=== PATIENT | female | born 1980 | race Hispanic/Latino ===

== ENCOUNTER 2024-10-16 11:15 | Emergency (ER) | payer SELFPAY ==
[2024-10-16] VITALS (7 sets, daily range): BP systolic 122–196; BP diastolic 63–123; BMI 29.6
[2024-10-16 12:21] LABS: % Basophils 0.5 % (0-2); % Eosinophils 0.8 % (0-6); % Immature Granulocytes 0.3 % (0-0.5); % Lymphocytes 22.3 % (20.5-51.1); % Monocytes 6.2 % (1.7-9.3); % Neutrophils 69.9 % (42.2-75.2); Absolute Eosinophils 0.1 10^3/uL (0-0.7); Absolute Lymphocytes 1.4 10^3/uL (1.2-3.4); Absolute Monocytes 0.4 10^3/uL (0.1-0.6); Absolute Neutrophils 4.3 10^3/uL (1.4-6.5); Hematocrit 37.4 % (37.0-47.0); Hemoglobin 13.2 g/dL (12.0-16.0); Mean Corp Hgb Conc. 35.3 g/dL (33.0-37.0); Mean Corpuscular Hgb 29.3 pg (27.0-31.0); Mean Corpuscular Volume 83.1 fL (81.0-99.0); Mean Platelet Volume 9.2 fL (7.4-10.4); Nucleated Red Blood Cells % 0 %; Platelet Count 330 10^3/uL (130-400); Red Cell Dist. Width 13.1 % (11.5-14.5); White Blood Cell Count 6.1 10^3/uL (4.8-10.8)
--- NOTE | 2024-10-16 12:34 | ED.GENMED ---
History of Present Illness
General
Chief Complaint: Chest Pain
Source: patient and other (Patient's son who is at the bedside as well as a yeast supervisor for [place])
Exam Limitations: none
Time Seen by Provider: 10/16/24 12:32
Nursing documentation reviewed up to this point in time: agreed with
History of Present Illness
History of Present Illness:
The patient is a 44-year-old female with a past medical history of high blood pressure and insulin-dependent diabetes. Patient arrives with multiple complaints. Patient reports several weeks of intermittent chest pain across her entire chest and
shortness of breath. The chest pain is not worse when she takes a deep breath, nor is it sharp. She describes it as a tightness or pressure. Additionally, patient describes a mild to moderate headache and numbness throughout her whole body.
Patient reports that the numbness seems worse on the left side of her body than on the right side. She denies any difficulty swallowing or speaking. She denies dizziness. Additionally patient reports cough and diffuse lower back pain. She denies
sore throat and rash. She denies vision changes. She denies nausea, vomiting and diarrhea. Patient reports that she has been off of her insulin for 1 year because her [place] but her mother is no longer able to afford
her insulin. Additionally, the patient reports that she takes medication for her blood pressure but is unsure what it is called and states that her mom has not been able to afford her blood pressure medication for about 2 months. Patient was able
to show me a picture of the blood pressure medication and it appears as though it might be clonidine. Overall, patient reports the symptoms have been occurring all intermittently and occur about 3 times per week for several weeks to months.
Past History
Past History
ED Past Medical History: HTN and IDDM
ED Past Surgical History: Gynecological
Social History
Tobacco: Non-smoker
Drug: None
Personal: Other
Living: with family
Employment: Other
Family History
Family History: Other
Review of Systems
Review of Systems
Allergies reviewed?: Yes
All Other Systems: ROS reviewed and negative except as documented in HPI and ROS
Constitutional: Reports fatigue
EENT: Reports no symptoms
Respiratory: Reports cough and trouble breathing
Cardiac: Reports chest pain
ABD/GI: Reports no symptoms
: Reports no symptoms
Musculoskeletal: Reports back pain
Skin: Reports no symptoms
Neurological: Reports headache and numbness
Endocrine: Reports no symptoms
Hematologic/Lymphatic: Reports no symptoms
Psychiatric: Reports no symptoms
Phy Exam
Physical Exam
Physical Exam:
Physical Exam
General: no apparent distress, not acutely ill. Well and comfortable appearing
Neck: supple. no meningeal signs. normal psoterior pharynx
Heart: s1/s2 regular rate and rhythm, no murmur. equal radial pulses.
Lungs: no acute respiratory distress. clear bilaterally. Breathing completely comfortably
Abdomen: normal bowel sounds. not tender. no CVAT
Neuro: alert and oriented. no focal neurological deficits. Cranial nerves equal and symmetric bilaterally. Extraocular muscles intact. PERRL, 5 out of 5 strength in all extremities without drift. Normal [id number].
Patient reports diminished sensation of left face, left arm and left leg but could still identify which side I am touching
Skin: no rash
Psychiatric: well kept. interactive and cooperative
Extremities: no edema. no calf tenderness. negative homans. good distal pulses
Scores
Heart Score for Chest Pain Patients
STEMI patient?: Not applicable
Course
Orders/Labs/Results
Orders:
Orders
10/16/24 11:31
ECG [Electrocardiogram (*1)] Urgent
Reason for Study: Chest Pain
EKG- Treatment ONCE
10/16/24 12:12
Test Result ONCE
10/16/24 12:13
CMP [Comprehensive Metabolic Panel] Urgent
Complete Blood Count/With Diff Urgent
HCG, Serum Qualitative Screen Urgent
Lipase Urgent
NT-proBNP Urgent
Troponin I Urgent
10/16/24 12:33
Add On- LAB Urgent
Tests Added?: pro-BNP
10/16/24 13:06
Acetaminophen [Tylenol] 1,000 mg PO NOW STA
10/16/24 13:07
CT Head W/o Iv Contrast Urgent
Comment:
Reason For Exam: L sided body numbness, HTN
Clonidine [Catapres] 0.2 mg PO NOW STA
10/16/24 14:09
CR Chest - 2 Views Urgent
Comment:
Reason For Exam: SOB, cough
10/16/24 15:59
Case Management Consult ONCE
Case Management Consult: Discharge Planning
Requested By:: PHYSICIAN
Comment: Support with paying for clonidine
10/16/24 16:35
Urinalysis Reflex To Culture Urgent
Date Specimen was Collected: 10/16/24
Time Specimen was Collected: 16:34
Urine Microscopic Reflex Cult Urgent
Abnormal Lab Results
10/16/24 10/16/24
12:13 16:35
Chloride 109 H mmol/L
(98-107)
Creatinine 0.4 L mg/dL
(0.6-1.0)
Ur Occult Blood Reflex 1+ A
(Negative)
Urine RBC 3-6 A /HPF
(0-2)
Urine Bacteria (Reflex) Few A
(Negative)
10/16/24 12:13
10/16/24 12:13
Vital Signs
Initial and Last Documented VS:
Initial Vital Signs
Temp Pulse Resp BP Pulse Ox
98.3 F 77 16 187/123 100
10/16/24 11:19 10/16/24 11:19 10/16/24 11:19 10/16/24 11:19 10/16/24 11:19
Last Documented Vital Signs
Temp Pulse Resp BP Pulse Ox
98.2 F 77 18 128/63 100
10/16/24 11:26 10/16/24 17:17 10/16/24 17:17 10/16/24 17:17 10/16/24 17:17
MDM/Problems Addressed
Differential Diagnosis Includes:
Hypertensive urgency, hypertensive emergency, CVA, acute hyperglycemia
MDM/Problems Addressed:
Patient complains of multiple symptoms including diffuse numbness, worse on the left than the right, as well as headache and chest pain
Chronic conditions affecting care: HTN
Acute Exacerbation and/or Progression of Chronic Illness:
Patient is acutely hypertensive, likely due to poorly controlled hypertension
*Radiology
Radiology exam reviewed: preliminary read by ED provider (Chest x-ray read by me. No acute disease) and radiology read reviewed
*Pulse Oximetry
Patient hypoxic: no
*EKG
Interpreted by ED Provider?: Yes
Interpretation: abnormal
Comparison EKG: no comparison EKG present
Rate: normal
Rhythm: sinus
Friona: normal axis
Interval: normal interval
QRS Pattern: normal QRS
Ischemia: non-specific ST changes
*[employer] Interpretation
Rate: normal
Interpretation: normal
Rhythm: sinus
*Critical Care Note
Total Time (30-74mins, 75-104mins- exclusive of procedures): Not Applicable
Data Reviewed
Source: patient and family
Patient Management
Social determinants of health affecting care: Living situation and Strong social support (Son is at the bedside. He is able to speak [place] fairly well.)
Discussion with other providers: Other (Case discussed with neurologist on-call who felt that patient can safely go home given that her symptoms are gone and her blood pressure has improved with outpatient follow-up, blood pressure control, and
aspirin 81 mg daily)
Escalation/DeEscalation of care consider admission/obs:
4:45 pm Patient looks extremely well and comfortable. She reports her chest pain is gone, her headache is much better and her numbness is gone completely. Her blood pressure is greatly improved with clonidine. I had case management come by and
recommend that patient fill prescription at [facility] because it will cost about $10 per month.
We used a yeast supervisor multiple times with the patient understood the importance of starting the clonidine 0.2 mg daily, starting aspirin, as well as calling and [facility] clinic to follow-up
ED Attending Note
-
Portions of this chart may have been created with voice recognition software.� Occasional wrong word or��sound alike� substitutions may have occurred due to the inherent limitations of voice recognition software.
Discharge Plan
Departure
Patient Disposition: Home (Routine Discharge)
Date of Disposition: 10/16/24
Time of Disposition: 17:00
Patient with high blood pressure during this ER visit?: Yes
Condition: Good
Covid-19: Not Applicable
Discharge Problem:
HBP (high blood pressure)
Instructions: High blood pressure - ED discharge instructions
Prescriptions:
New
clonidine HCl 0.2 mg tablet
0.2 mg PO DAILY Qty: 30 0RF
Referrals:
[facility] [Outside]
NONE,* [Family Provider] -
Activity Restrictions/Additional Instructions:
llame a la clin[facility] para programar holli karolina para que le controlen la preson arterial y el azucar en paul. El irina de telefono es [phone].
Te recomendamos que tambien tomos 81 mg de Aspirina que se vende en [facility] ([facility])
Interventions
Interventions:
*Risk Screen - Suicide Last Done: 10/16/24 11:26
*General Assessment Last Done: 10/16/24 13:08
*Neglect/Abuse Screening Last Done: 10/16/24 12:00
*ED- Fall Risk Assessment Last Done: 10/16/24 12:00
*ED COVID-19 Vaccine History Last Done: 10/16/24 11:53
*Nursing Disposition Last Done: 10/16/24 17:18
ED- Cardiac Assessment Last Done: 10/16/24 11:56
Discharge Date and Time
Discharge Date/Time: 10/16/24 17:19
Print Language: INDONESIAN
[2024-10-16 12:37] LABS: ALT (SGPT) 31 U/L (0-35); AST (SGOT) 22 U/L (14-36); Albumin 4.4 g/dl (3.5-5.0); Alkaline Phosphatase 75 U/L (38-126); Blood Urea Nitrogen 10 mg/dl (7-17); Calcium 8.9 mg/dl (8.4-10.2); Carbon Dioxide 26 mmol/L (22-30); Chloride 109 mmol/L (98-107); Estimated Creatinine Clearance 112 ml/min; Glucose 98 mg/dl (70-99); HCG, Serum Qualitative Screen Negative; Potassium 3.5 mmol/L (3.5-5.1); Sodium 142 mmol/L (135-145); Total Bilirubin 0.5 mg/dl (0.2-1.3); Total Protein 6.7 g/dl (6.3-8.2); eGFR > 60.00
[2024-10-16 12:48] LABS: Troponin I < 0.012 ng/ml
[2024-10-16 13:08] LABS: Lipase 63 U/L (23-300)
[2024-10-16] MEDS: TYLENOL 1000 MG PO (13:13)
[2024-10-16] MEDS: CATAPRES 0.2 MG PO (13:13)
[2024-10-16 13:22] LABS: NT-proBNP 364 pg/ml
[2024-10-16 16:48] LABS: Urine Albumin Negative (Neg - Trace); Urine Bilirubin Negative (Negative); Urine Character Clear (Clear); Urine Color Yellow; Urine Glucose Negative (Negative); Urine Ketone Negative (Negative); Urine Leukocyte Negative (Negative); Urine Nitrite Negative (Negative); Urine Occult Blood 1+ (Negative); Urine Urobilinogen Negative (Neg - 1+); Urine pH 6.5 (5.0-9.0)
[2024-10-16 17:04] LABS: Urine Bacteria Few (Negative); Urine Squamous Cell 16-20 /LPF (Few)
[2024-10-16 17:05] LABS: Urine White Cell 0-2 /HPF (0-5)
--- NOTE | 2024-10-16 17:06 | CM ---
Met with patient and ED MD at bedside. Patient stated that she has been getting her medications from overse[place] however she no longer has the ability to obtain them. Information for [facility] was provided. Looked at [facility]
which had the Clonodin she needs for 10 dollars. Patient had no further concerns and is medically cleared for discharge. Son and daughter at bedside.
== END 2024-10-16 17:19 | disposition home or self-care (01) ==
LOC: EMR 11:15
PROVIDERS: Emergency Medicine; EMERGENCY PHYSICIAN Emergency Medicine
DX: I10 Essential (primary) hypertension (principal); R07.89 Other chest pain; R06.02 Shortness of breath; R20.0 Anesthesia of skin; R51.9 Headache, unspecified; R53.83 Other fatigue; R05.9 Cough, unspecified; M54.50 Low back pain, unspecified; E11.9 Type 2 diabetes mellitus without complications; Z91.148 Patient's other noncompliance with medication regimen for other reason; Z79.4 Long term (current) use of insulin; Z88.0 Allergy status to penicillin; Z90.49 Acquired absence of other specified parts of digestive tract; K52.9 Noninfective gastroenteritis and colitis, unspecified
CPT/HCPCS: 99284; 70450; 71046; 80053; 81003; 81015; 83690; 83880; 84484; 84703; 85025; 93005